=== PATIENT | female | born 1945 | race Caucasian/White ===

== ENCOUNTER 2019-02-13 04:41 | Emergency (ER) | payer MEDICARE, OTHER ==
[~2019-02-13] VITALS: Ht 160 cm; Wt 72.2 kg
[~2019-02-13 04:41] MED LIST: NITR-58 PO; PHEN-538 PO
[2019-02-13 04:45] VITALS: Ht 160 cm; Wt 72.2 kg
[2019-02-13] MEDS ORDERED: morphine 2 MG INJ IV STA (04:58)
[2019-02-13] MEDS ORDERED: ONDANSETRON 4 MG INJ IV STA (04:58)
[2019-02-13] MEDS ORDERED: SOD CHLORIDE 0.9% 1,000 ML IV ONE (05:00)
[2019-02-13] MEDS ORDERED: FAMOTIDINE 20 MG INJ IV ONE (05:00)
--- NOTE | 2019-02-13 05:10 | ERD ---
ER Documentation Chief Complaint Chief Complaint L LOWER BACK PAIN X'S 1 DAY; HX KIDNEY STONES HPI Patient is a 73 years old female with past medical history nephrolithiasis presenting to the clinic for left flank pain X few days. She reports pain initially started on her left mid back region which is now radiated to her left lower quadrant. Patient describes the pain as colicky and rates it as 8 out of 10. Patient admits to taking OTC aspirin without resolution of pain. Patient was recently diagnosed with nephrolithiasis 1 month ago and required stent for 7 cm stone. Patient reports a history of small left kidney. Patient denies urinary urgency, urinary frequency, bladder fullness, dysuria, hematuria, fever, chills, night sweats. ROS All systems reviewed and are negative except as per history of present illness. Medications Home Meds Active Scripts Phenazopyridine Hcl* (Pyridium*) 200 Mg Tab, 200 MG PO TID PRN for URINARY PAIN, #6 TAB Prov:TOMA VILLA PA-C 02/13/19 Nitrofurantoin Monohyd Macrocr* (Macrobid*) 100 Mg Capsr, 100 MG PO BID for 7 Days, #14 CAP Prov:TOMA VILLA PA-C 02/13/19 Allergies Allergies: Coded Allergies: Sulfa (Sulfonamide Antibiotics) (Verified Allergy, Unknown, 02/13/19) ciprofloxacin (Verified Allergy, Unknown, 02/13/19) meperidine (Verified Allergy, Unknown, 02/13/19) PMhx/Soc History of Surgery: No Anesthesia Reaction: No Hx Neurological Disorder: No Hx Respiratory Disorders: No Hx Cardiac Disorders: Yes (HTN) Hx Psychiatric Problems: No Hx Miscellaneous Medical Probl: Yes (kidney stone) Hx Alcohol Use: No Hx Substance Use: No Hx Tobacco Use: No Smoking Status: Never smoker FmHx Family History: No diabetes, No coronary disease, No other Physical Exam Vitals Physical Exam Const: No acute distress Head: Atraumatic Eyes: Normal Conjunctiva Resp: Clear to auscultation bilaterally Cardio: Regular rate and rhythm, no murmurs Abd: Soft, left abdominal tenderness, non distended. Normal bowel sounds. Negative Rodríguez sign, negative Rovsing sign, negative McBurney's point tenderness, negative guarding, negative rebound tenderness. Skin: No petechiae or rashes Back: No midline or flank tenderness. Negative CVAT. Ext: No cyanosis, or edema Neur: Awake and alert Psych: Normal Mood and Affect Results 24 hrs Laboratory Tests Test 02/13/19 05:21 White Blood Count 7.6 10^3/ul Red Blood Count 3.43 10^6/ul Hemoglobin 9.3 g/dl Hematocrit 30.1 % Mean Corpuscular Volume 87.8 fl Mean Corpuscular Hemoglobin 27.1 pg Mean Corpuscular Hemoglobin Concent 30.9 g/dl Red Cell Distribution Width 17.0 % Platelet Count 178 10^3/UL Mean Platelet Volume 11.3 fl Immature Granulocytes % 0.400 % Neutrophils % 52.8 % Lymphocytes % 35.4 % Monocytes % 8.2 % Eosinophils % 2.9 % Basophils % 0.3 % Nucleated Red Blood Cells % 0.0 /100WBC Immature Granulocytes # 0.030 10^3/ul Neutrophils # 4.0 10^3/ul Lymphocytes # 2.7 10^3/ul Monocytes # 0.6 10^3/ul Eosinophils # 0.2 10^3/ul Basophils # 0.0 10^3/ul Nucleated Red Blood Cells # 0.0 10^3/ul Urine Color YELLOW Urine Clarity CLOUDY Urine pH 5.0 Urine Specific Franklin 1.015 Urine Ketones NEGATIVE mg/dL Urine Nitrite NEGATIVE mg/dL Urine Bilirubin NEGATIVE mg/dL Urine Urobilinogen NEGATIVE mg/dL Urine Leukocyte Esterase 2+ Marisol/ul Urine Microscopic RBC 2 /HPF Urine Microscopic WBC 23 /HPF Urine Squamous Epithelial Cells FEW /HPF Urine Bacteria FEW /HPF Urine Mucus FEW /HPF Urine Hemoglobin 1+ mg/dL Urine Glucose NEGATIVE mg/dL Urine Total Protein 2+ mg/dl Sodium Level 142 mmol/L Potassium Level 3.8 mmol/L Chloride Level 107 mmol/L Carbon Dioxide Level 25 mmol/L Anion Gap 10 Blood Urea Nitrogen 32 mg/dl Creatinine 1.92 mg/dl Est Glomerular Filtrat Rate mL/min mL/min Glucose Level 117 mg/dl Calcium Level 10.4 mg/dl Total Bilirubin 0.4 mg/dl Direct Bilirubin 0.00 mg/dl Indirect Bilirubin 0.4 mg/dl Aspartate Amino Transf (AST/SGOT) 32 IU/L Alanine Aminotransferase (ALT/SGPT) 21 IU/L Alkaline Phosphatase 89 IU/L Total Protein 7.2 g/dl Albumin 4.2 g/dl Globulin 3.00 g/dl Albumin/Globulin Ratio 1.40 Current Medications Medications Dose Sig/Juan Luis Start Time Status Last (Trade) Ordered Route PRN Stop Time Admin Dose Reason Admin Sodium 1,000 ml @ Q1H ONCE 02/13/19 DC 02/13/19 Chloride 1,000 mls/hr IV 05:00 05:44 02/13/19 05:59 Ondansetron 2 mg ONCE STAT 02/13/19 DC 02/13/19 HCl (Zofran IV 04:58 05:34 Inj) 02/13/19 05:04 Famotidine 20 mg ONCE ONCE 02/13/19 DC (Pepcid Iv) IV 05:00 02/13/19 05:05 Morphine 2 mg ONCE STAT 02/13/19 DC 02/13/19 Sulfate IV 04:58 05:44 (morphine) 02/13/19 05:04 Ceftriaxone 50 ml @ ONCE ONCE 02/13/19 DC 02/13/19 Sodium 100 mls/hr IVPB 06:00 06:30 02/13/19 06:29 Procedures/MDM Patient was seen and evaluated for left-sided flank pain. CBC, CMP, urinalysis revealed leukocyte esterase, urine WBC otherwise unremarkable. 1 L normal saline IV, Zofran 4 mg IV, morphine 2 mg IV administered in ED. CT abdomen and pelvis without IV contrast revealed: 1. Diverticulosis without diverticulitis. 2. Moderate retained fecal matter throughout the colon likely reflecting co nstipation. 3. Marked left renal atrophy. Multiple left renal cysts measuring up to 2.3 x 3.1 cm. Patient stable and ready for discharge. Follow-up with PCP. Patient is most likely experiencing UTI without complication. Patient will be discharged with Macrobid and Pyridium. Departure Diagnosis: Primary Impression: UTI (urinary tract infection) Urinary tract infection type: site unspecified Hematuria presence: without hematuria Qualified Codes: N39.0 - Urinary tract infection, site not specified Patient Instructions: Understanding Urinary Tract Infections (UTIs) Referrals: [facility] Additional Instructions: Patient advised to return to the ED immediately for new or worsening symptoms. Patient advised to follow up with primary care provider in the next 24-48 hours. Patient verbalized understanding and agrees with treatment plan and course of action. If patient has no primary care they may follow up with [facility] + [address] [address] or [facility] [address] [place] [address] or [facility] [address] [place] [address] TOMA VILLA PA-C Feb 13, 2019 05:10
[2019-02-13] MEDS ORDERED: CEFTRIAXONE 1 GM/50 ML (PMX) 50 ML IVPB ONE (06:00)
[2019-02-13 07:23] VITALS: BP 135/61; PULSE 75; RESP 18
== END 2019-02-13 07:33 | disposition home or self-care (01) ==
LOC: FTE 04:41
DX: N39.0 Urinary tract infection, site not specified (principal); I10 Essential (primary) hypertension
CPT/HCPCS: 74176; 80053; 81001; 85025; 87086; J0696; J2270; J2405; J7030; 36415; 96361; 96365; 96375